=== PATIENT | male | born 1955 | race Caucasian/White ===

== ENCOUNTER 2017-08-29 07:53 | Day surgery (SDC) | payer OTHER ==
[~2017-08-29 07:53] MED LIST: AVALIDE 150-12.1 TA1 PO; CIPRO500 MG PO; INTESTINEX1 CA1 PO; LEVOTHROID25 MCG PO; LEVSIN/SL0.125 MG PO; PERCOCET 5/3251 TAB PO; PROTONIX40 MG PO; ULTRACET PO
== END 2017-08-29 12:30 | disposition home or self-care (01) ==
LOC: AMB-ENDOS 07:53
DX: K57.30 Diverticulosis of large intestine without perforation or abscess without bleeding (principal); Z85.048 Personal history of other malignant neoplasm of rectum, rectosigmoid junction, and anus

== ENCOUNTER 2017-10-08 05:32 | Emergency (ER) | payer OTHER ==
[~2017-10-08] VITALS: Ht 170.2 cm; Wt 79.4 kg
[2017-10-08] MEDS ORDERED: SYNTHROID88 MCG PO (06:08)
[2017-10-08] MEDS ORDERED: IRBESARTAN-HCT1 EACH PO (06:09)
== END 2017-10-08 10:39 | disposition home or self-care (01) ==
LOC: ER 05:32
DX: K29.60 Other gastritis without bleeding (principal)